=== PATIENT | male | born 1985 | race Two or more races ===

== ENCOUNTER 2017-01-21 21:25 | Emergency (ER) | payer SELFPAY ==
[~2017-01-21] VITALS: Ht 177.8 cm; Wt 76.7 kg
--- NOTE | ~2017-01-21 | CR112 ---
[facility] A Service of [facility] RADIOLOGY TEXT RESULTS PATIENT: NICOLE CISNEROS LOCATION: [facility] #: [id number] : [birth year] UNIT #: [id number] AGE: [address]: Maureen Moore APRN SEX: M ORDER DR: [id number] [facility] [address] [place], [place] [address] [id number] E MR#: [id number] Acc #: [id number] NAME: NICOLE CISNEROS : 1985 SEX: M STUDY DATE/TIME: 01/21/2017 23:09 UNIT: [facility] ROOM: STUDY DESCRIPTION: CR Finger 2 View 4Th Lt Attending Physician: Maureen Moore A.P.R.N. Ordering Physician: Maureen Moore A.P.R.N. Primary Care Physician: No Primary Care Physician MEDICAL IMAGING REPORT This report is preliminary unless electronic signature is present EXAM Left fourth digit series INDICATIONS Left fourth digit pain after removal of foreign body. PROCEDURE Three views of the left fourth digit. COMPARISON Left hand series earlier on the same day. FINDINGS Redemonstration of a what is favored to be ossific density along the medial palmar aspect of the fourth proximal interphalangeal joint. It measures 3 mm and is unchanged from the prior. It is best seen on the AP view and not well placed on the other 2 projections., as previously suggested, this could represent a small avulsion fragment. There is no other fractures seen and no other foreign body. IMPRESSION A 3 mm what is favored to be ossific density along the medial palmar aspect approximately the interphalangeal joint of the fourth digit. It is unchanged from the previous study. As previously suggested, this may represent a small avulsion fragment. I cannot entirely exclude that represents a foreign body. There is no other fracture or foreign body seen. Dictated by... Jan David M.D. THIS IS AN ELECTRONICALLY VERIFIED REPORT [facility] A Service of [facility] RADIOLOGY TEXT RESULTS PATIENT: NICOLE CISNEROS LOCATION[facility] #: [id number] : [birth year] UNIT #: [id number] AGE: [address]: Maureen Moore APRN SEX: M ORDER DR: Jan David M.D. at 01/22/2017 10:26 PM AARON/rick TD: 01/22/2017 06:42 JOB #: [id number] MEDICAL IMAGING REPORT Page 1 of 1 COPY
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
== END 2017-01-22 00:08 | disposition home or self-care (01) ==
LOC: CFTX 21:25 → CED 21:25 → CFTX 22:25
DX: S62.615A Displaced fracture of proximal phalanx of left ring finger, initial encounter for closed fracture (principal); Y92.810 Car as the place of occurrence of the external cause; W22.8XXA Striking against or struck by other objects, initial encounter
CPT/HCPCS: 29130; 73130; 73140; 99283